=== PATIENT | female | born 1950 | race Caucasian/White ===

== ENCOUNTER → 2017-12-07 | Outpatient (CLI) | payer MEDICARE | LOC: M RAD 13:20 | DX: R92.8 Other abnormal and inconclusive findings on diagnostic imaging of breast (principal); N63.11 Unspecified lump in the right breast, upper outer quadrant; N60.01 Solitary cyst of right breast; R92.1 Mammographic calcification found on diagnostic imaging of breast; N60.02 Solitary cyst of left breast; Z13.9 Encounter for screening, unspecified | CPT/HCPCS: 77066 ==

== ENCOUNTER → 2017-12-07 | Outpatient (REF) | payer MEDICARE ==
[2017-12-07 14:19] LABS: BASO # 0.1 10^3/uL (0.0-0.2); BASO % 1.4 % (0.0-1.0); EOS # 0.2 10^3/uL (0.0-0.50); EOS % 3.2 % (0.0-3.0); HEMATOCRIT 40.4 % (36.0-47.0); HEMOGLOBIN 13.3 g/dl (12.0-16.0); LYMPH # 1.4 10^3/uL (1.5-4.5); LYMPH % 27.9 % (24.0-44.0); MEAN CORPUSCULAR HEMOGLOBIN 30.5 pg (27.0-33.0); MEAN CORPUSCULAR HGB CONC 32.9 g/dl (32.0-36.5); MEAN CORPUSCULAR VOLUME 92.7 fl (80.0-96.0); MONO # 0.6 10^3/uL (0.0-0.8); MONO % 11.6 % (0.0-5.0); NEUTROPHILS # 2.8 10^3/uL (1.8-7.7); NEUTROPHILS % 55.9 % (36.0-66.0); PLATELET COUNT, AUTOMATED 331 10^3/uL (150-450); RED BLOOD COUNT 4.36 10^6/uL (4.00-5.40)
[2017-12-07 14:35] LABS: TOTAL 25(OH) VITAMIN D 27.7 NG/ML (30.0-100.0)
[2017-12-07 14:39] LABS: ALBUMIN/GLOBULIN RATIO 1.33 (1.00-1.93); ALKALINE PHOSPHATASE 107 U/L (45-117); ALT/SGPT 21 U/L (12-78); ANION GAP 7 MEQ/L (8-16); AST/SGOT 15 U/L (7-37); BILIRUBIN,TOTAL 0.5 MG/DL (0.2-1.0); BLOOD UREA NITROGEN 13 MG/DL (7-18); CALCIUM LEVEL 9.5 MG/DL (8.8-10.2); CARBON DIOXIDE LEVEL 29 MEQ/L (21-32); CHLORIDE LEVEL 107 MEQ/L (98-107); CHOLESTEROL LEVEL 213 MG/DL (<200); CHOLESTEROL RISK RATIO 2.958 (<5); CREATININE FOR GFR 0.69 MG/DL (0.55-1.30); GLOMERULAR FILTRATION RATE > 60.0 (>45); GLUCOSE, FASTING 92 MG/DL (70-100); HDL CHOLESTEROL 72 MG/DL (>40); LDL CHOLESTEROL 105.4 MG/DL (<100); NON-HDL-C 141 MG/DL; POTASSIUM SERUM 4.3 MEQ/L (3.5-5.1); SODIUM LEVEL 143 MEQ/L (136-145); TRIGLYCERIDES LEVEL 178 MG/DL (<150)
[2017-12-07 15:15] LABS: HIV 1&2 SCREEN CENTAUR NEGATIVE (NEGATIVE)
[2017-12-07 15:33] LABS: ESTIMATED AVERAGE GLUCOSE 97 MG/DL (60-110)
== END ==
LOC: M LAB REF 13:14
DX: Z13.9 Encounter for screening, unspecified (principal)

== ENCOUNTER → 2018-01-21 | Outpatient (CLI) | payer MEDICARE ==
[2018-01-21 09:50] LABS: HEMATOCRIT 35.4 % (36.0-47.0); HEMOGLOBIN 12.4 g/dl (12.0-15.5); MEAN CORPUSCULAR VOLUME 88.5 fl (80.0-96.0); PLATELET COUNT, AUTOMATED 200 10^3/uL (150-450); RED CELL DISTRIBUTION WIDTH 11.5 % (11.5-14.5); WHITE BLOOD COUNT 3.8 10^3/uL (4.0-10.0)
[2018-01-21 09:52] LABS: ADD MANUAL DIFFER YES; DIFF SLIDE NUMBER 174; POSITIVE MORPH POS FLAG
[2018-01-21 10:12] LABS: BASOPHILS 2 % (0-4); EOSINOPHILS 3 % (0-5); LYMPHOCYTES 69 % (16-52); MONOCYTES 3 % (0-8); NEUTROPHILS 23 % (35-75); PLATELET ESTIMATE NORMAL (NORMAL)
== END ==
LOC: M WUC 08:42
DX: C50.919 Malignant neoplasm of unspecified site of unspecified female breast (principal)
CPT/HCPCS: 85025

== ENCOUNTER → 2018-01-29 | Outpatient (REF) | payer MEDICARE, MEDICAID ==
[2018-01-29 18:16] LABS: ANION GAP 7 MEQ/L (8-16); BLOOD UREA NITROGEN 29 MG/DL (7-18); CALCIUM LEVEL 9.5 MG/DL (8.8-10.2); CARBON DIOXIDE LEVEL 26 MEQ/L (21-32); CHLORIDE LEVEL 108 MEQ/L (98-107); CREATININE FOR GFR 0.62 MG/DL (0.55-1.30); GLOMERULAR FILTRATION RATE > 60.0 (>45); GLUCOSE, FASTING 109 MG/DL (70-100); MAGNESIUM LEVEL 2.1 MG/DL (1.8-2.4); POTASSIUM SERUM 3.4 MEQ/L (3.5-5.1); SODIUM LEVEL 141 MEQ/L (136-145)
== END ==
LOC: M LAB REF 17:40
DX: I95.1 Orthostatic hypotension (principal)
CPT/HCPCS: 83735

== ENCOUNTER → 2018-02-04 | Outpatient (CLI) | payer MEDICARE, MEDICAID ==
[2018-02-04 13:10] LABS: HEMATOCRIT 30.7 % (36.0-47.0); HEMOGLOBIN 10.2 g/dl (12.0-15.5); MEAN CORPUSCULAR HEMOGLOBIN 31.1 pg (27.0-33.0); MEAN CORPUSCULAR HGB CONC 33.2 g/dl (32.0-36.5); MEAN CORPUSCULAR VOLUME 93.6 fl (80.0-96.0); PLATELET COUNT, AUTOMATED 292 10^3/uL (150-450); RED BLOOD COUNT 3.28 10^6/uL (4.00-5.40); RED CELL DISTRIBUTION WIDTH 12.8 % (11.5-14.5); WHITE BLOOD COUNT 3.7 10^3/uL (4.0-10.0)
[2018-02-04 13:25] LABS: POSITIVE MORPH POS FLAG
[2018-02-04 13:26] LABS: ADD MANUAL DIFFER YES; DIFF SLIDE NUMBER 171
[2018-02-04 13:36] LABS: ATYPICAL LYMPH 4 % (0-5); BANDS 3 % (< 11); BASOPHILS 2 % (0-4); EOSINOPHILS 4 % (0-5); LYMPHOCYTES 28 % (16-52); MONOCYTES 5 % (0-8); NEUTROPHILS 54 % (35-75); PLATELET ESTIMATE NORMAL (NORMAL)
== END ==
LOC: M WUC 09:27
DX: C50.411 Malignant neoplasm of upper-outer quadrant of right female breast (principal); Z17.1 Estrogen receptor negative status [ER-]
CPT/HCPCS: 85025

== ENCOUNTER → 2018-02-16 | Outpatient (REF) | payer MEDICARE, MEDICAID ==
[2018-02-16 12:18] LABS: APPEARANCE, URINE CLOUDY (CLEAR); BACTERIA, URINE AUTO NEGATIVE (NEGATIVE); BILIRUBIN, URINE AUTO NEGATIVE (NEGATIVE); BLOOD, URINE BLOOD NEGATIVE (NEGATIVE); COLOR, URINE YELLOW (YELLOW); GLUCOSE, URINE (UA) AUTO NEGATIVE (NEGATIVE); KETONE, URINE AUTO NEGATIVE (NEGATIVE); LEUKOCYTE ESTERASE, URINE AUTO NEGATIVE (NEGATIVE); MUCUS, URINE SMALL (NEGATIVE); NITRITE, URINE AUTO NEGATIVE (NEGATIVE); PROTEIN, URINE AUTO NEGATIVE (NEGATIVE); RBC, URINE AUTO 2 /HPF (0-3); SPECIFIC GRAVITY URINE AUTO 1.016 (1.002-1.035); SQUAMOUS EPITHELIAL CELL UR AU 0 /HPF (0-6); URIC ACID CRYSTALS MODERATE; UROBILINOGEN, URINE AUTO 0.2 mg/dL (0.0-2.0); WBC, URINE AUTO 1 /HPF (0-3)
[2018-02-16 12:49] LABS: HEMATOCRIT 30.8 % (36.0-47.0); HEMOGLOBIN 10.3 g/dl (12.0-15.5); MEAN CORPUSCULAR HEMOGLOBIN 31.6 pg (27.0-33.0); MEAN CORPUSCULAR HGB CONC 33.4 g/dl (32.0-36.5); MEAN CORPUSCULAR VOLUME 94.5 fl (80.0-96.0); PLATELET COUNT, AUTOMATED 187 10^3/uL (150-450); RED BLOOD COUNT 3.26 10^6/uL (4.00-5.40); RED CELL DISTRIBUTION WIDTH 14.1 % (11.5-14.5); WHITE BLOOD COUNT 24.8 10^3/uL (4.0-10.0)
[2018-02-16 13:03] LABS: ADD MANUAL DIFFER YES; DIFF SLIDE NUMBER 283; POS COUNT POS FLAG; POSITIVE MORPH POS FLAG
[2018-02-16 13:12] LABS: ANISOCYTOSIS 1+; LYMPHOCYTES 3 % (16-52); MONOCYTES 2 % (0-8); NEUTROPHILS 95 % (35-75); POIKILOCYTOSIS 1+
[2018-02-16 13:13] LABS: PLATELET ESTIMATE NORMAL (NORMAL)
[2018-02-16 13:20] LABS: ALBUMIN 3.5 GM/DL (3.2-5.2); ALBUMIN/GLOBULIN RATIO 1.35 (1.00-1.93); ALKALINE PHOSPHATASE 193 U/L (45-117); ALT/SGPT 20 U/L (12-78); ANION GAP 7 MEQ/L (8-16); AST/SGOT 15 U/L (7-37); BILIRUBIN,TOTAL 0.3 MG/DL (0.2-1.0); BLOOD UREA NITROGEN 19 MG/DL (7-18); CALCIUM LEVEL 9.3 MG/DL (8.8-10.2); CARBON DIOXIDE LEVEL 28 MEQ/L (21-32); CHLORIDE LEVEL 108 MEQ/L (98-107); CREATININE FOR GFR 0.56 MG/DL (0.55-1.30); GLOMERULAR FILTRATION RATE > 60.0 (>45); GLUCOSE, FASTING 100 MG/DL (70-100); MAGNESIUM LEVEL 2.1 MG/DL (1.8-2.4); SODIUM LEVEL 143 MEQ/L (136-145); TOTAL PROTEIN 6.1 GM/DL (6.4-8.2)
[2018-02-16 14:27] LABS: CORTISOL AM 17.3 UG/DL (4.3-22.4)
== END ==
LOC: M LAB REF 11:49
DX: I95.1 Orthostatic hypotension (principal)
CPT/HCPCS: 83735

== ENCOUNTER → 2018-04-21 | Outpatient (CLI) | payer MEDICARE, MEDICAID | LOC: M CARPUL 11:23 | DX: R06.09 Other forms of dyspnea (principal); I34.0 Nonrheumatic mitral (valve) insufficiency; I27.20 Pulmonary hypertension, unspecified | CPT/HCPCS: 93306 ==

== ENCOUNTER → 2018-04-23 | Outpatient (CLI) | payer MEDICARE, MEDICAID ==
[~2018-04-23] MED LIST: ISOVUE-370 76% 100ML VIAL (Q9967) As Ordered
== END ==
LOC: M RAD 07:43
DX: E04.1 Nontoxic single thyroid nodule (principal); R06.02 Shortness of breath; C50.919 Malignant neoplasm of unspecified site of unspecified female breast
CPT/HCPCS: Q9967

== ENCOUNTER → 2018-08-05 | Outpatient (CLI) | payer MEDICARE, MEDICAID | LOC: M ONCR 14:00 | DX: C50.911 Malignant neoplasm of unspecified site of right female breast (principal) | CPT/HCPCS: G0463 ==

== ENCOUNTER 2018-08-11 14:18 | Outpatient (RCR) | payer MEDICARE, MEDICAID | END 2018-09-03 | LOC: M ONCR 14:18 | DX: C50.411 Malignant neoplasm of upper-outer quadrant of right female breast (principal) | CPT/HCPCS: 77300 ==

== ENCOUNTER → 2018-10-04 | Outpatient (RCR) | payer MEDICARE, MEDICAID ==
--- NOTE | 2018-09-08 07:14 | RADONC ---
RADIATION ONCOLOGY PROGRESS NOTE DATE: 09/06/2018 CHART NUMBER: [id number] Ms. Stoddard is presently at a dose of 1620 cGy to her right breast and is tolerating treatments quite well at this point with no complaints related to her radiation therapy. She is having no breast or bone pain. REVIEW OF SYSTEMS: The patient's review of systems is noncontributory. She denies nausea, vomiting, fevers, chills, night sweats, diplopia, headaches, anxiety or depression, anorexia, weight loss, visual disturbances, chest pain, urinary or bowel difficulties, bone pain, or neurological problems. PHYSICAL EXAMINATION: The patient's skin is in good condition with no evidence of radiation change present. There is no moist or dry desquamation. The remainder of her physical exam remains unchanged. Ms. Stoddard is tolerating treatments quite well and radiation will continue as scheduled.
--- NOTE | 2018-09-14 13:27 | RADONC ---
RADIATION ONCOLOGY PROGRESS NOTE DATE: 09/13/2018 CHART #: [id number] Ms. Stoddard is presently at a dose of 2520 cGy to her right breast and is tolerating treatments quite well at this point with no complaints related to her radiation therapy. She has got no breast or bone pain. REVIEW OF SYSTEMS: The patient's review of systems is noncontributory. Denies nausea, vomiting, fevers, chills, night sweats, diplopia, headaches, anxiety or depression, anorexia, weight loss, visual disturbances, chest pain, urinary or bowel difficulties, bone pain, or neurological problems. PHYSICAL EXAMINATION: The patient's skin is in good condition with no evidence of radiation change present. There is no moist or dry desquamation. The remainder of her physical exam remains unchanged. Ms. Stoddard is tolerating treatments quite well and radiation will continue as scheduled.
--- NOTE | 2018-09-21 08:27 | RADONC ---
RADIATION ONCOLOGY PROGRESS NOTE DATE: 09/20/2018 CHART NUMBER: [id number] PROGRESS NOTE: Ms. Stoddard is presently at a dose of 3240 cGy to her right breast and is tolerating treatments quite well at this point with no complaints related to her radiation therapy other than itching skin. REVIEW OF SYSTEMS: The patient's review of systems is positive for itching skin but is otherwise noncontributory. Denies nausea, vomiting, fevers, chills, night sweats, diplopia, headaches, anxiety or depression, anorexia, weight loss, visual disturbances, chest pain, urinary or bowel difficulties, bone pain, or neurological problems. PHYSICAL EXAMINATION: The patient's skin is in good condition with no evidence of moist or dry desquamation. There is some erythema and tanning present. The remainder of her physical exam remains unchanged. Ms. Stoddard is tolerating treatments fairly well and radiation will continue as scheduled. She has been given skin care instructions.
--- NOTE | 2018-10-01 14:13 | RADONC ---
RADIATION ONCOLOGY PROGRESS NOTE DATE: 09/29/2018 CHART NUMBER: [id number] PROGRESS NOTE: Mrs. Stoddard with a diagnosis of right breast cancer is currently receiving adjuvant local regional radiotherapy. Her current dose is 3780 cGy of an anticipated 5040 cGy to be followed by an 900 cGy boost of the lumpectomy scar site. She is tolerating her radiotherapy quite well with the exception of some erythema. She was complaining of quite a lot of itching in the area and has been given some hydrocortisone cream. Her skin at this point is causing her discomfort. She denies any nausea, vomiting, coughing, sputum production or hemoptysis. The remainder of the review of systems is noncontributory as she denies any headaches, anxiety, depression, anorexia, weight loss, or visual disturbances. EXAMINATION FINDINGS: Skin within the irradiated volume shows erythema with no evidence of dry or moist desquamation. This extends into the axillary area. The remainder of the physical examination is unchanged. IMPRESSION: Tolerating therapy reasonably well. PLAN: We would like to give her a prescription for some Silvadene cream to use to help with her skin discomfort.
[~2018-10-04] MED LIST changes: -ISOVUE-370 76% 100ML VIAL (Q9967) As Ordered; +SODIUM CHLORIDE 0.9% INJ 10 ML SYR IV PRN
--- NOTE | 2018-10-06 14:25 | RADONC ---
RADIATION ONCOLOGY PROGRESS NOTE DATE: 10/04/2018 CHART NUMBER: [id number] PROGRESS NOTE: Ms. Stoddard is presently at a dose of 4320 cGy to her right breast and is tolerating her treatments fairly well, although she did develop a brisk skin reaction. She is presently using Silvadene. REVIEW OF SYSTEMS: Other than the patient's skin reaction, her review of systems is noncontributory. Denies nausea, vomiting, fevers, chills, night sweats, diplopia, headaches, anxiety or depression, anorexia, weight loss, visual disturbances, chest pain, urinary or bowel difficulties, bone pain, or neurological problems. PHYSICAL EXAMINATION The patient's skin overall is in generally good condition. There is a small area of desquamation in the axillary region. The remainder of her physical exam remains unchanged. Ms. Stoddard is tolerating treatments quite well and radiation will continue as scheduled.
== END ==
LOC: M ONCR 09-06 15:27
PROVIDERS: ATTEND Radiology Radiation Oncology
DX: C50.411 Malignant neoplasm of upper-outer quadrant of right female breast (principal)
CPT/HCPCS: 77336; 77387; 77412; 96523; J1642

== ENCOUNTER 2018-10-28 14:50 | Outpatient (RCR) | payer MEDICARE, MEDICAID ==
--- NOTE | 2018-10-07 12:17 | RADONC ---
RADIATION ONCOLOGY SIMULATION NOTE: DATE: CHART NUMBER: [id number] Ms. Stoddard was taken to the linear accelerator today for clinical setup of her right breast electron beam boost field. Setup was accomplished without difficulty or discomfort. Radiation treatment planning is underway and radiation treatments will begin subsequently. An immobilization device was created will be used throughout the course of treatment. It was created without difficulty or discomfort. I was physically present for the clinical simulation setup.
--- NOTE | 2018-10-19 07:52 | RADONC ---
RADIATION ONCOLOGY PROGRESS NOTE: DATE: 10/18/2018 CHART NUMBER: [id number] Ms. Stoddard is presently at a dose of 5760 cGy to her right breast primary site and is tolerating treatments quite well at this point with no complaints at this time related to her radiation therapy or disease. She has had no breast or bone pain. REVIEW OF SYSTEMS: The patient's review of systems is noncontributory. She denies nausea, vomiting, fevers, chills, night sweats, diplopia, headaches, anxiety or depression, anorexia, weight loss, visual disturbances, chest pain, urinary or bowel difficulties, bone pain, or neurological problems. PHYSICAL EXAMINATION: The patient's skin overall is in good condition with no evidence of moist or dry desquamation. The remainder of her physical exam remains unchanged. Ms. Stoddard Is tolerating treatments quite well and radiation will continue as scheduled.
--- NOTE | 2018-10-21 11:08 | RADONC ---
RADIATION ONCOLOGY TREATMENT SUMMARY DATE OF SERVICE: 10/20/2018 CHART #: [id number] DIAGNOSIS: Right breast cancer. STAGE: II B, [id number]. ECOG PERFORMANCE STATUS: 0. TREATMENT SUMMARY: Ms. 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 We treated the patient to the right breast and supraclavicular as well as axillary regions for a dose of 5040 cGy delivered in 28 fractions of 180 cGy each over 50 elapsed days from 08/23/2018 through 10/12/2018. The patient's right breast and supraclavicular as well as axillary regions were treated on a linear accelerator. The breast region was treated using 3-D conformal technique with medial and lateral tangential camacho. A 6 MV photon beam was utilized. The lymph node drainage sites were treated with a combination of 6 X and 15 X photons. 3-D conformal therapy was utilized with an anterior oblique field and a posterior axillary field. Following completion of 5040 cGy to the entire right, the breast primary site was boosted for an additional 900 cGy delivered in five fractions of 180 cGy each from 10/13/2018 through 10/19/2018. The primary site boost was treated on the linear accelerator utilizing a 9 MEV electron beam prescribed to the 90% isodose line via non phos technique. This brought the primary site to a total dose of 5940 cGy delivered in 33 fractions over 57 elapsed days from 08/23/2018 through 10/19/2018. Ms. Stoddard tolerated her treatments quite well and was able to complete therapy as prescribed without interruption. I have scheduled the patient to see me again in 1 month for further followup. She will also continue to be followed by her other physicians as well. Thank you for allowing us to participate in the in the care of this very pleasant woman. If I could be of any further assistance or provide you with any information, please feel free to contact me at anytime. As always warm regards. cc: MD Nya Rowe MD
[2018-10-28] MEDS ORDERED: SODIUM CHLORIDE 0.9% INJ 10 ML SYR IV PRN (15:00)
== END 2018-11-04 ==
LOC: M ONCR 14:50 → M ONCM 14:50
PROVIDERS: ATTEND Radiology Radiation Oncology
DX: C50.411 Malignant neoplasm of upper-outer quadrant of right female breast (principal)

== ENCOUNTER → 2018-12-22 | Outpatient (CLI) | payer MEDICARE, MEDICAID ==
--- NOTE | 2018-12-23 10:20 | RADONC ---
RADIATION ONCOLOGY FOLLOWUP NOTE DATE: 12/22/2018 CHART NUMBER: [id number] DIAGNOSIS: Right breast cancer. STAGE: IIB, [id number]. ECOG PERFORMANCE STATUS: 0. FOLLOWUP NOTE: Ms. Stoddard is a very pleasant 68-year-old white female with the diagnosis of what appears to be a stage IIB, [id number] high-grade infiltrating ductal carcinoma of the right breast who is presenting to us today for routine followup visit 2 months post completion of external beam radiation therapy. The patient presents today reporting that she is doing quite well with no complaints at this time related to her radiation therapy or disease. She has no breast or bone pain. The patient's review of systems is noncontributory. She denies nausea, vomiting, fevers, chills, night sweats, diplopia, headaches, anxiety or depression, anorexia, weight loss, visual disturbances, chest pain, urinary or bowel difficulties, bone pain, or neurological problems. PHYSICAL EXAMINATION: The patient is a well-developed, well-nourished, female in no acute distress. HEENT exam is normocephalic, atraumatic. Extraocular movements are intact. There is no palpable cervical, supraclavicular, infraclavicular, axillary, or inguinal lymphadenopathy present. Lungs are clear to auscultation and percussion. Heart has a regular rate and rhythm. Abdomen is benign with no hepatosplenomegaly, masses, or tenderness. Breast examination reveals no masses or discharge bilaterally. Skeletal examination reveals no tenderness to pressure or percussion of the bony skeleton. Extremities reveal no clubbing, cyanosis, or edema. Neurologic exam is grossly intact, as is the remainder of the physical examination. ASSESSMENT: The patient is clinically BILL at this time. She is being followed closely by her medical oncologist as well as surgical oncologist. In light of this I have discharged her from my followup except on a as needed basis. cc: MD Nya Rowe MD
== END ==
LOC: M ONCR 15:28
PROVIDERS: ATTEND Radiology Radiation Oncology
DX: C50.411 Malignant neoplasm of upper-outer quadrant of right female breast (principal)

== ENCOUNTER → 2019-03-08 | Outpatient (CLI) | payer MEDICARE, MEDICAID | LOC: M ONCR 14:58 | PROVIDERS: ATTEND Radiology Radiation Oncology | DX: C50.411 Malignant neoplasm of upper-outer quadrant of right female breast (principal) ==

== ENCOUNTER → 2019-10-29 | Outpatient (CLI) | payer MEDICARE, MEDICAID ==
[2019-10-29 17:47] LABS: CREATININE FOR GFR 0.99 MG/DL (0.55-1.30); GLOMERULAR FILTRATION RATE 59.6 (>45)
== END ==
LOC: M WUC 13:10
PROVIDERS: ATTEND Nurse Practitioner Family
DX: C50.411 Malignant neoplasm of upper-outer quadrant of right female breast (principal); Z17.1 Estrogen receptor negative status [ER-]

== ENCOUNTER → 2020-11-05 | Outpatient (CLI) | payer MEDICARE, MEDICAID ==
[2020-11-05 13:48] LABS: CREATININE FOR GFR 1.01 MG/DL (0.55-1.30)
== END ==
LOC: M WUC 09:20
PROVIDERS: ATTEND Nurse Practitioner Family
DX: C50.411 Malignant neoplasm of upper-outer quadrant of right female breast (principal); Z17.1 Estrogen receptor negative status [ER-]

== ENCOUNTER → 2021-01-08 | Outpatient (CLI) | payer MEDICARE, MEDICAID ==
[2021-01-08 09:55] LABS: CREATININE FOR GFR 0.77 MG/DL (0.55-1.30); GLOMERULAR FILTRATION RATE > 60.0 (>45)
== END ==
LOC: M WUC 08:24
PROVIDERS: ATTEND Nurse Practitioner Family
DX: C50.411 Malignant neoplasm of upper-outer quadrant of right female breast (principal); Z17.1 Estrogen receptor negative status [ER-]

== ENCOUNTER 2021-12-14 16:45 | Emergency (ER) | payer MEDICARE, MEDICAID ==
[~2021-12-14] VITALS: Ht 154.9 cm; Wt 50.9 kg
[2021-12-14 17:24] VITALS: BP 178/87
[2021-12-14] MEDS ORDERED: ACETAMINOPHEN TAB 650MG DOSE (2X325MG) PO ONE (22:10)
[2021-12-14] MEDS ORDERED: traMADol 50 MG TAB PO ONE (22:10)
[2021-12-14] MEDS ORDERED: MEDR4PAK PO (22:13)
[2021-12-14] MEDS ORDERED: ULTR50TA8 PO (22:13)
== END 2021-12-14 22:27 | disposition home or self-care (01) ==
LOC: M ED 16:45
DX: M54.32 Sciatica, left side (principal); M51.37 Other intervertebral disc degeneration, lumbosacral region; M51.27 Other intervertebral disc displacement, lumbosacral region

== ENCOUNTER → 2022-01-17 | Outpatient (CLI) | payer MEDICARE, MEDICAID ==
[~2022-01-17] MED LIST changes: +ACET325C5 PO; +AMLO1TAB24; +ATOR1TAB19; +FAMO20TA PO; +IBUP-1022 PO; +MEDR4PAK PO; +RA M500C PO; +SENN1TAB41 PO; -SODIUM CHLORIDE 0.9% INJ 10 ML SYR IV PRN; +ULTR50TA8 PO; +VITMTA PO
== END ==
LOC: M SOG 10:11
PROVIDERS: ATTEND Orthopaedic Surgery Hand Surgery
DX: M19.042 Primary osteoarthritis, left hand (principal); M19.041 Primary osteoarthritis, right hand

== ENCOUNTER → 2022-01-20 | Outpatient (CLI) | payer MEDICARE, MEDICAID | LOC: M LABSMTC 11:56 | PROVIDERS: ATTEND Anesthesiology | DX: Z01.812 Encounter for preprocedural laboratory examination (principal); Z20.822 Contact with and (suspected) exposure to COVID-19 ==

== ENCOUNTER 2022-01-22 08:52 | Day surgery (SDC) | payer MEDICARE, MEDICAID ==
[~2022-01-22] VITALS: Ht 154.9 cm; Wt 50.3 kg
[2022-01-22] MEDS ORDERED: LIDOCAINE W/EPINEPHRINE 1% 20ML VIAL XX ONE (09:00)
[2022-01-22] MEDS ORDERED: SODIUM BICARBONATE 8.4% INJ 50MEQ 50 ML VIAL XX ONE (09:00)
[2022-01-22] MEDS ORDERED: BACITRACIN OINTMENT 30GM TUBE As Ordered ONE (10:55)
[2022-01-22 11:31] VITALS: BP 131/69
== END 2022-01-22 11:43 | disposition home or self-care (01) ==
LOC: M SDC 08:52
PROVIDERS: ATTEND Orthopaedic Surgery Hand Surgery
DX: M65.331 Trigger finger, right middle finger (principal); M65.341 Trigger finger, right ring finger; I10 Essential (primary) hypertension; E78.5 Hyperlipidemia, unspecified; K21.9 Gastro-esophageal reflux disease without esophagitis; K59.00 Constipation, unspecified; Z86.73 Personal history of transient ischemic attack (TIA), and cerebral infarction without residual deficits; Z85.3 Personal history of malignant neoplasm of breast; Z92.21 Personal history of antineoplastic chemotherapy; Z92.3 Personal history of irradiation; Z79.899 Other long term (current) drug therapy

== ENCOUNTER 2022-01-27 17:43 | Emergency (ER) | payer MEDICARE, MEDICAID ==
[~2022-01-27] VITALS: Ht 154.9 cm; Wt 50.0 kg
[2022-01-27 17:44] VITALS: BP 182/84
== END 2022-01-27 19:10 | disposition left against medical advice (07) ==
LOC: M ED 17:43
DX: Z53.21 Procedure and treatment not carried out due to patient leaving prior to being seen by health care provider (principal)

== ENCOUNTER → 2022-01-27 | Outpatient (REF) | payer MEDICARE, MEDICAID | LOC: M LAB REF 16:59 | PROVIDERS: ATTEND Nurse Practitioner Family | DX: R32 Unspecified urinary incontinence (principal) ==

== ENCOUNTER → 2022-01-29 | Outpatient (CLI) | payer MEDICARE, MEDICAID | LOC: M WHC 12:35 | PROVIDERS: ATTEND Nurse Practitioner Family | DX: M54.50 Low back pain, unspecified (principal); M79.605 Pain in left leg ==

== ENCOUNTER → 2022-02-01 | Outpatient (CLI) | payer MEDICARE, MEDICAID | LOC: M LABSMTC 10:20 | PROVIDERS: ATTEND Anesthesiology | DX: Z01.812 Encounter for preprocedural laboratory examination (principal); Z20.822 Contact with and (suspected) exposure to COVID-19 ==

== ENCOUNTER → 2022-02-03 | Outpatient (CLI) | payer MEDICARE, MEDICAID | LOC: M PLAIMG 07:29 | PROVIDERS: ATTEND Orthopaedic Surgery | DX: M47.16 Other spondylosis with myelopathy, lumbar region (principal) ==

== ENCOUNTER 2022-02-06 09:50 | Day surgery (SDC) | payer MEDICARE, MEDICAID ==
[~2022-02-06] VITALS: Ht 154.9 cm; Wt 48.0 kg
[2022-02-06] MEDS ORDERED: NS 1,000 ML IV ONE (10:50)
[2022-02-06] MEDS ORDERED: LISI10TA22 PO (11:01)
[2022-02-06] MEDS ORDERED: propofoL 200 MG/20 ML VIAL As Ordered ONE ×3 (12:17→13:03)
[2022-02-06] MEDS ORDERED: LIDOCAINE 2% 100MG/5ML SDV (FOR ANES.) As Ordered ONE (12:17)
[2022-02-06 13:58] VITALS: BP 158/72
[2022-02-10] MEDS ORDERED: AMLO1TAB24 PO (08:28)
[2022-02-10] MEDS ORDERED: PEPC1TAB5 PO (08:30)
[2022-02-10] MEDS ORDERED: MAGN500T6 PO (08:30)
== END 2022-02-06 14:07 | disposition home or self-care (01) ==
LOC: M OPP 09:50
PROVIDERS: ATTEND Surgery
DX: D12.0 Benign neoplasm of cecum (principal); D12.2 Benign neoplasm of ascending colon; K57.30 Diverticulosis of large intestine without perforation or abscess without bleeding; Z80.0 Family history of malignant neoplasm of digestive organs; Z85.3 Personal history of malignant neoplasm of breast; Z80.3 Family history of malignant neoplasm of breast; K44.9 Diaphragmatic hernia without obstruction or gangrene; I10 Essential (primary) hypertension; Z79.899 Other long term (current) drug therapy; Z86.73 Personal history of transient ischemic attack (TIA), and cerebral infarction without residual deficits; Z92.3 Personal history of irradiation; Z92.21 Personal history of antineoplastic chemotherapy

== ENCOUNTER → 2022-02-27 | Outpatient (REF) | payer MEDICARE, MEDICAID ==
[~2022-02-27] MED LIST changes: +AMLO1TAB24 PO; +LISI10TA22 PO; +MAGN500T6 PO; +PEPC1TAB5 PO
[2022-02-27 21:22] LABS: BLOOD UREA NITROGEN 20 MG/DL (7-18); CREATININE FOR GFR 0.96 MG/DL (0.55-1.30); GLOMERULAR FILTRATION RATE > 60.0 (>45)
== END ==
LOC: M LAB REF 20:44
PROVIDERS: ATTEND Orthopaedic Surgery
DX: M47.27 Other spondylosis with radiculopathy, lumbosacral region (principal)

== ENCOUNTER → 2022-03-05 | Outpatient (CLI) | payer MEDICARE, MEDICAID ==
[~2022-03-05] MED LIST changes: +PROHANCE 279.3MG/ML 5ML VIAL ONE
== END ==
LOC: M PLAIMG 13:37
PROVIDERS: ATTEND Orthopaedic Surgery
DX: M47.27 Other spondylosis with radiculopathy, lumbosacral region (principal); M51.34 Other intervertebral disc degeneration, thoracic region
CPT/HCPCS: 72157; 72158; A9576

== ENCOUNTER → 2022-05-12 | Outpatient (CLI) | payer MEDICARE, MEDICAID ==
[~2022-05-12] MED LIST changes: -PROHANCE 279.3MG/ML 5ML VIAL ONE
== END ==
LOC: M PLAIMG 08:06
PROVIDERS: ATTEND Nurse Practitioner Family
DX: E04.1 Nontoxic single thyroid nodule (principal); R91.8 Other nonspecific abnormal finding of lung field; R93.7 Abnormal findings on diagnostic imaging of other parts of musculoskeletal system

== ENCOUNTER → 2022-06-02 | Outpatient (CLI) | payer MEDICARE, MEDICAID | LOC: M PLARAD 13:49 | PROVIDERS: ATTEND Nurse Practitioner Family | DX: R91.8 Other nonspecific abnormal finding of lung field (principal) | CPT/HCPCS: 78815; A9552 ==

== ENCOUNTER → 2022-10-24 | Outpatient (CLI) | payer MEDICARE, MEDICAID | LOC: M WHC 13:39 | PROVIDERS: ATTEND Nurse Practitioner Family | DX: Z12.31 Encounter for screening mammogram for malignant neoplasm of breast (principal); Z13.820 Encounter for screening for osteoporosis; M85.88 Other specified disorders of bone density and structure, other site; M81.0 Age-related osteoporosis without current pathological fracture; Z85.3 Personal history of malignant neoplasm of breast ==

== ENCOUNTER → 2022-11-17 | Outpatient (REF) | payer MEDICARE, MEDICAID ==
[2022-11-17 18:18] LABS: BLOOD UREA NITROGEN 17 MG/DL (9-23); CALCIUM LEVEL 9.6 MG/DL (8.3-10.6); CARBON DIOXIDE LEVEL 30 MMOL/L (20-31); CHLORIDE LEVEL 107 MMOL/L (98-107); CREATININE FOR GFR 0.86 MG/DL (0.55-1.30); GLOMERULAR FILTRATION RATE > 60.0 (>39); GLUCOSE, FASTING 84 MG/DL (74-106); POTASSIUM SERUM 3.9 MMOL/L (3.5-5.1); SODIUM LEVEL 141 MMOL/L (136-145)
[2022-11-17 18:20] LABS: TOTAL 25(OH) VITAMIN D 21.5 NG/ML (20.0-100.0)
== END ==
LOC: M LAB REF 16:31
PROVIDERS: ATTEND Nurse Practitioner Family
DX: M81.0 Age-related osteoporosis without current pathological fracture (principal)

== ENCOUNTER → 2022-12-18 | Outpatient (CLI) | payer MEDICARE, MEDICAID | LOC: M PLAIMG 11:09 | PROVIDERS: ATTEND Nurse Practitioner Family | DX: R91.8 Other nonspecific abnormal finding of lung field (principal) ==

== ENCOUNTER → 2023-01-28 | Outpatient (CLI) | payer MEDICARE, MEDICAID | LOC: M RAD 15:06 | PROVIDERS: ATTEND Nurse Practitioner Family | DX: E04.1 Nontoxic single thyroid nodule (principal) ==

== ENCOUNTER 2023-06-02 09:02 | Emergency (ER) | payer MEDICARE, MEDICAID ==
[~2023-06-02] VITALS: Ht 152.4 cm; Wt 58.1 kg
[2023-06-02 09:07] VITALS: TEMP 97.7
[2023-06-02] MEDS ORDERED: DOXY-443 PO (11:04)
[2023-06-02] MEDS ORDERED: ARTIDRO OP (11:04)
[2023-06-02] MEDS ORDERED: LUBR1OIN OP (11:04)
[2023-06-02] MEDS ORDERED: PRED20TA PO (11:04)
[2023-06-02 11:27] VITALS: BP 158/83; O2SAT 97
[2023-06-03 20:10] LABS: IgG P18 AB Absent (.); IgG P23 AB Absent (.); IgG P28 AB Absent (.); IgG P30 AB Absent (.); IgG P39 AB Absent (.); IgG P41 AB Present (.); IgG P45 AB Present (.); IgG P66 AB Absent (.); IgG P93 AB Present (.); IgM P23 AB Absent (.); IgM P39 AB Absent (.); IgM P41 AB Absent (.); LYME IgG WB INTERPRETATION Negative (.); LYME IgM WB INTERPRETATION Negative (.)
== END 2023-06-02 11:29 | disposition home or self-care (01) ==
LOC: M ED 09:02
DX: G51.0 Bell's palsy (principal); I10 Essential (primary) hypertension; K21.9 Gastro-esophageal reflux disease without esophagitis; F41.9 Anxiety disorder, unspecified; F32.A Depression, unspecified; Z86.79 Personal history of other diseases of the circulatory system; Z85.3 Personal history of malignant neoplasm of breast; Z88.8 Allergy status to other drugs, medicaments and biological substances; Z79.02 Long term (current) use of antithrombotics/antiplatelets; Z79.811 Long term (current) use of aromatase inhibitors; Z79.899 Other long term (current) drug therapy

== ENCOUNTER → 2023-09-18 | Outpatient (REF) | payer MEDICARE, MEDICAID ==
[~2023-09-18] MED LIST changes: +ARTIDRO OP; +DOXY-443 PO; +LUBR1OIN OP; +PRED20TA PO
[2023-09-18 21:32] LABS: BASO # 0.1 10^3/uL (0.0-0.2); BASO % 0.8 % (0.0-1.0); EOS # 0.2 10^3/uL (0.0-0.5); EOS % 2.5 % (0.0-3.0); HEMOGLOBIN 13.3 g/dl (12.0-15.5); LYMPH % 24.1 % (24.0-44.0); MEAN CORPUSCULAR HGB CONC 32.4 g/dl (32.0-36.5); MEAN CORPUSCULAR VOLUME 95.6 fl (80.0-96.0); MONO # 0.8 10^3/uL (0.0-0.8); MONO % 9.9 % (2.0-8.0); NEUTROPHILS # 5.2 10^3/uL (1.5-8.5); NEUTROPHILS % 62.5 % (36.0-66.0); PLATELET COUNT, AUTOMATED 323 10^3/uL (150-450); RED BLOOD COUNT 4.29 10^6/uL (4.00-5.40); WHITE BLOOD COUNT 8.4 10^3/uL (4.0-10.0)
[2023-09-18 21:39] LABS: HEMOGLOBIN A1c 5.1 % (4.0-6.0)
[2023-09-18 21:54] LABS: BLOOD UREA NITROGEN 21 MG/DL (9-23); CALCIUM LEVEL 10.3 MG/DL (8.3-10.6); CARBON DIOXIDE LEVEL 27 MMOL/L (20-31); CHLORIDE LEVEL 106 MMOL/L (98-107); CHOLESTEROL LEVEL 179 MG/DL (<200); CHOLESTEROL RISK RATIO 2.47 (<5); CPK CREATINE PHOSPHOKINASE 147 U/L (34-145); CREATININE FOR GFR 0.68 MG/DL (0.55-1.30); GLOMERULAR FILTRATION RATE > 60.0 (>39); GLUCOSE, FASTING 96 MG/DL (74-106); HDL CHOLESTEROL 72.4 MG/DL (>40); LDL CHOLESTEROL 80.4 MG/DL (<100); NON-HDL-C 106.6 MG/DL; POTASSIUM SERUM 3.9 MMOL/L (3.5-5.1); SODIUM LEVEL 140 MMOL/L (136-145); TRIGLYCERIDES LEVEL 131 MG/DL (<150)
[2023-09-18 21:57] LABS: THYROID STIMULATING HORMONE 2.659 uIU/ML (0.55-4.78)
== END ==
LOC: M LAB REF 21:03
PROVIDERS: ATTEND Nurse Practitioner Family
DX: E04.1 Nontoxic single thyroid nodule (principal); T46.6X5A Adverse effect of antihyperlipidemic and antiarteriosclerotic drugs, initial encounter; E66.3 Overweight; E78.5 Hyperlipidemia, unspecified; Z79.899 Other long term (current) drug therapy

== ENCOUNTER → 2023-10-26 | Outpatient (CLI) | payer MEDICARE, MEDICAID | LOC: M WHC 08:55 | PROVIDERS: ATTEND Nurse Practitioner Family | DX: Z12.31 Encounter for screening mammogram for malignant neoplasm of breast (principal) ==

== ENCOUNTER → 2023-10-30 | Outpatient (REF) | payer MEDICARE, MEDICAID ==
[2023-10-30 13:07] LABS: BASO # 0.1 10^3/uL (0.0-0.2); BASO % 1.1 % (0.0-1.0); EOS # 0.1 10^3/uL (0.0-0.5); EOS % 1.9 % (0.0-3.0); HEMATOCRIT 42.2 % (36.0-47.0); HEMOGLOBIN 13.8 g/dl (12.0-15.5); LYMPH # 1.6 10^3/uL (1.5-5.0); LYMPH % 25.8 % (24.0-44.0); MEAN CORPUSCULAR HGB CONC 32.7 g/dl (32.0-36.5); MEAN CORPUSCULAR VOLUME 94.8 fl (80.0-96.0); MONO # 0.8 10^3/uL (0.0-0.8); MONO % 12.3 % (2.0-8.0); NEUTROPHILS # 3.7 10^3/uL (1.5-8.5); NEUTROPHILS % 58.7 % (36.0-66.0); PLATELET COUNT, AUTOMATED 322 10^3/uL (150-450); RED BLOOD COUNT 4.45 10^6/uL (4.00-5.40); WHITE BLOOD COUNT 6.2 10^3/uL (4.0-10.0)
== END ==
LOC: M LAB REF 12:18
PROVIDERS: ATTEND Nurse Practitioner Family
DX: E66.3 Overweight (principal); T46.6X5A Adverse effect of antihyperlipidemic and antiarteriosclerotic drugs, initial encounter

== ENCOUNTER 2023-11-25 07:04 | Day surgery (SDC) | payer MEDICARE, MEDICAID ==
[~2023-11-25] VITALS: Ht 156.2 cm; Wt 62.0 kg
[~2023-11-25 07:04] MED LIST changes: +ALEN70TA82 PO; +CALC-356 PO; +DULO1CAP4 PO; +FAMO1TAB11 PO; +LISI20TA33 PO; +PANT40TA29 PO; +ROSU10TA6 PO; +SENN-83 PO
[2023-11-25] MEDS: NS 1,000 ML IV ONE (07:38)
[2023-11-25] MEDS ORDERED: propofoL 200 MG/20 ML VIAL As Ordered ONE (08:17)
[2023-11-25 08:32] VITALS: TEMP 97.5
[2023-11-25 08:50] VITALS: BP 175/80; O2SAT 99
== END 2023-11-25 09:02 | disposition home or self-care (01) ==
LOC: M OPP 07:04
PROVIDERS: ATTEND Surgery
DX: K21.00 Gastro-esophageal reflux disease with esophagitis, without bleeding (principal); K20.80 Other esophagitis without bleeding; K44.9 Diaphragmatic hernia without obstruction or gangrene; Z86.73 Personal history of transient ischemic attack (TIA), and cerebral infarction without residual deficits; Z79.02 Long term (current) use of antithrombotics/antiplatelets; Z79.1 Long term (current) use of non-steroidal anti-inflammatories (NSAID); Z79.83 Long term (current) use of bisphosphonates; Z79.899 Other long term (current) drug therapy

== ENCOUNTER 2023-12-01 09:17 | Day surgery (SDC) | payer MEDICARE, MEDICAID ==
[~2023-12-01] VITALS: Ht 149.9 cm; Wt 61.1 kg
[2023-12-01] MEDS: LIDOCAINE W/EPINEPHRINE 1% 20ML VIAL XX ONE (09:00)
[2023-12-01] MEDS: SODIUM BICARBONATE 8.4% INJ 50MEQ 50ML VIAL XX ONE (09:00)
[2023-12-01] MEDS: BACITRACIN OINTMENT 30GM TUBE As Ordered ONE (11:18)
[2023-12-01 12:00] VITALS: BP 142/69; TEMP 97.2; O2SAT 100
== END 2023-12-01 12:15 | disposition home or self-care (01) ==
LOC: M SDC 09:17
PROVIDERS: ATTEND Orthopaedic Surgery Hand Surgery
DX: G56.01 Carpal tunnel syndrome, right upper limb (principal); M65.332 Trigger finger, left middle finger; M65.342 Trigger finger, left ring finger; I10 Essential (primary) hypertension; I73.00 Raynaud's syndrome without gangrene; E78.00 Pure hypercholesterolemia, unspecified; Z79.899 Other long term (current) drug therapy; Z85.3 Personal history of malignant neoplasm of breast; K21.9 Gastro-esophageal reflux disease without esophagitis; Z88.8 Allergy status to other drugs, medicaments and biological substances

== ENCOUNTER → 2023-12-29 | Outpatient (CLI) | payer MEDICARE, MEDICAID ==
[~2023-12-29] MED LIST changes: +E-Z-PAQUE 96% w/w SUSP 176GM BTL As Ordered ONE; -SENN1TAB41 PO; +SENN1TAB85 PO
== END ==
LOC: M RAD 09:03
PROVIDERS: ATTEND Surgery
DX: K21.9 Gastro-esophageal reflux disease without esophagitis (principal)

== ENCOUNTER → 2024-02-12 | Outpatient (REF) | payer MEDICARE, MEDICAID ==
[~2024-02-12] MED LIST changes: +DOXY-323 PO; -DOXY-443 PO; -E-Z-PAQUE 96% w/w SUSP 176GM BTL As Ordered ONE; -ROSU10TA6 PO; +ROSU10TA61 PO
[2024-02-12 13:28] LABS: CHOLESTEROL RISK RATIO 4.77 (<5); HDL CHOLESTEROL 58.8 MG/DL (>40); NON-HDL-C 222.2 MG/DL
== END ==
LOC: M LAB REF 12:38
PROVIDERS: ATTEND Nurse Practitioner Family
DX: E78.5 Hyperlipidemia, unspecified (principal)

== ENCOUNTER → 2024-02-19 | Outpatient (REF) | payer MEDICARE, MEDICAID ==
[~2024-02-19] MED LIST changes: +LISI20TA37 PO; +OMEG10002 PO
[2024-02-19 14:10] LABS: FOLATE > 24.00 NG/ML (>5.4); VITAMIN B12 LEVEL 462 PG/ML (211-911)
[2024-02-19 14:11] LABS: C REACTIVE PROTEIN QUANTITATIV < 0.40 MG/DL (<1.0)
[2024-02-19 14:12] LABS: IRON (FE) 103 UG/DL (50-170); PERCENT SATURATION 33.3 % (13.2-45.0); RHEUMATOID FACTOR QUANT 7.9 IU/ML (<14); TOTAL IRON BINDING CAPACITY 309 UG/DL (250-425)
[2024-02-22 18:17] LABS: ANA (HEP2) Positive (.)
== END ==
LOC: M LAB REF 12:37
PROVIDERS: ATTEND Nurse Practitioner Family
DX: R69 Illness, unspecified (principal); M79.10 Myalgia, unspecified site; Z86.39 Personal history of other endocrine, nutritional and metabolic disease

== ENCOUNTER 2024-03-08 08:59 | Day surgery (SDC) | payer MEDICARE, MEDICAID ==
[~2024-03-08] VITALS: Ht 152.4 cm; Wt 59.0 kg
[2024-03-08] MEDS ORDERED: LIDOCAINE VISCOUS 2% SOLN 15ML UDC As Ordered ONE (09:13)
[2024-03-08 09:47] VITALS: BP 141/65; TEMP 97.9; O2SAT 100
== END 2024-03-08 09:55 | disposition home or self-care (01) ==
LOC: M OPP 08:59
PROVIDERS: ATTEND Surgery
DX: K44.9 Diaphragmatic hernia without obstruction or gangrene (principal)

== ENCOUNTER → 2024-03-28 | Outpatient (CLI) | payer MEDICARE, MEDICAID | LOC: M PLAIMG 14:49 | PROVIDERS: ATTEND Nurse Practitioner Family | DX: R01.1 Cardiac murmur, unspecified (principal) ==

== ENCOUNTER → 2024-04-19 | Outpatient (REF) | payer MEDICARE, MEDICAID ==
[2024-04-19 14:44] LABS: ALBUMIN 3.8 G/DL (3.2-5.2); BILIRUBIN,DIRECT 0.1 MG/DL (<0.4); BILIRUBIN,TOTAL 0.5 MG/DL (0.3-1.2); CHOLESTEROL RISK RATIO 2.68 (<5); HDL CHOLESTEROL 60.8 MG/DL (>40); LDL CHOLESTEROL 64.8 MG/DL (<100); NON-HDL-C 102.2 MG/DL; TOTAL PROTEIN 6.6 G/DL (5.7-8.2)
== END ==
LOC: M LAB REF 13:50
PROVIDERS: ATTEND Nurse Practitioner Family
DX: M79.10 Myalgia, unspecified site (principal); E78.2 Mixed hyperlipidemia

== ENCOUNTER → 2024-05-12 | Outpatient (REF) | payer MEDICARE, MEDICAID | LOC: M LAB REF 12:23 | PROVIDERS: ATTEND Nurse Practitioner Family | DX: R06.09 Other forms of dyspnea (principal) ==

== ENCOUNTER → 2024-06-09 | Outpatient (CLI) | payer MEDICARE, MEDICAID ==
[~2024-06-09] MED LIST changes: +SENN-187 PO; -SENN-83 PO
[2024-06-09 18:05] LABS: CALCIUM LEVEL 11.1 MG/DL (8.3-10.6); POTASSIUM SERUM 3.3 MMOL/L (3.5-5.1)
== END ==
LOC: M WUC 11:54
PROVIDERS: ATTEND Nurse Practitioner Family
DX: I10 Essential (primary) hypertension (principal); R06.09 Other forms of dyspnea

== ENCOUNTER → 2024-07-20 | Outpatient (CLI) | payer MEDICARE, MEDICAID ==
[~2024-07-20] MED LIST changes: -DOXY-323 PO; +DOXY-441 PO
== END ==
LOC: M CARPUL 08:43
PROVIDERS: ATTEND Nurse Practitioner Family
DX: R05.9 Cough, unspecified (principal)

== ENCOUNTER → 2024-11-07 | Outpatient (CLI) | payer MEDICARE, MEDICAID ==
[2024-11-07 12:06] LABS: CALCIUM LEVEL 10.3 MG/DL (8.3-10.6); CREATININE FOR GFR 0.99 MG/DL (0.55-1.30); GLOMERULAR FILTRATION RATE 58.7 (>39); POTASSIUM SERUM 3.3 MMOL/L (3.5-5.1)
== END ==
LOC: M WUC 08:17
PROVIDERS: ATTEND Nurse Practitioner Family
DX: I10 Essential (primary) hypertension (principal)

== ENCOUNTER → 2024-11-07 | Outpatient (CLI) | payer MEDICARE, MEDICAID ==
[2024-11-07 11:41] LABS: HEMOGLOBIN 12.7 g/dl (12.0-15.5); MEAN CORPUSCULAR HEMOGLOBIN 31.1 pg (27.0-33.0); MEAN CORPUSCULAR HGB CONC 33.4 g/dl (32.0-36.5); MEAN CORPUSCULAR VOLUME 93.1 fl (80.0-96.0); PLATELET COUNT, AUTOMATED 344 10^3/uL (150-450); RED BLOOD COUNT 4.08 10^6/uL (4.00-5.40); WHITE BLOOD COUNT 7.5 10^3/uL (4.0-10.0)
== END ==
LOC: M WUC 08:15
PROVIDERS: ATTEND Physician Assistant
DX: R06.02 Shortness of breath (principal); I10 Essential (primary) hypertension

== ENCOUNTER → 2024-11-17 | Outpatient (CLI) | payer MEDICARE, MEDICAID | LOC: M CARPUL 14:42 | PROVIDERS: ATTEND Physician Assistant | DX: R06.02 Shortness of breath (principal) ==

== ENCOUNTER → 2024-11-22 | Outpatient (CLI) | payer MEDICARE, MEDICAID | LOC: M WUC 09:16 | PROVIDERS: ATTEND Nurse Practitioner Family | DX: M54.2 Cervicalgia (principal); M48.02 Spinal stenosis, cervical region; M47.812 Spondylosis without myelopathy or radiculopathy, cervical region ==

== ENCOUNTER → 2025-01-12 | Outpatient (REF) | payer MEDICARE, MEDICAID ==
[2025-01-12 20:41] LABS: CALCIUM LEVEL 10.2 MG/DL (8.3-10.6); CREATININE FOR GFR 1.52 MG/DL (0.55-1.30); GLOMERULAR FILTRATION RATE 36.2 (>39); POTASSIUM SERUM 2.7 MMOL/L (3.5-5.1)
== END ==
LOC: M LAB REF 17:14
PROVIDERS: ATTEND Nurse Practitioner Family
DX: R79.0 Abnormal level of blood mineral (principal)

== ENCOUNTER → 2025-01-16 | Outpatient (REF) | payer MEDICARE, MEDICAID ==
[2025-01-16 12:45] LABS: CALCIUM LEVEL 10.7 MG/DL (8.3-10.6); CREATININE FOR GFR 0.92 MG/DL (0.55-1.30); GLOMERULAR FILTRATION RATE 66.2 (>39); POTASSIUM SERUM 3.9 MMOL/L (3.5-5.1)
== END ==
LOC: M LAB REF 12:10
PROVIDERS: ATTEND Nurse Practitioner Family
DX: E87.6 Hypokalemia (principal)

== ENCOUNTER → 2025-02-21 | Outpatient (CLI) | payer MEDICARE, MEDICAID ==
[2025-02-21 19:07] LABS: CALCIUM LEVEL 10.5 MG/DL (8.3-10.6); CREATININE FOR GFR 1.62 MG/DL (0.55-1.30); GLOMERULAR FILTRATION RATE 33.6 (>39); POTASSIUM SERUM 3.3 MMOL/L (3.5-5.1)
== END ==
LOC: M WUC 13:13
PROVIDERS: ATTEND Nurse Practitioner Family
DX: E87.6 Hypokalemia (principal)